=== PATIENT | female | born 1965 | race Two or more races ===

== ENCOUNTER 2016-12-02 23:11 | Inpatient (IN) | payer MEDICARE, OTHER ==
[~2016-12-02] VITALS: Ht 162.6 cm; Wt 95.3 kg
[~2016-12-02 23:11] MED LIST: FENO134C PO; GABA-534 PO; LOSA100T15 PO; METF500T4 PO; METO50TA3 PO; PANT40TA4 PO
[2016-12-03] MEDS ORDERED: ACETAMINOPHEN 325 MG TABLET PO PRN
[2016-12-03] MEDS ORDERED: MAG HYDROX/AL HYDROX/SIMETH 30 ML UDC PO PRN
[2016-12-03] MEDS ORDERED: MAGNESIUM HYDROXIDE 30 ML UDC PO PRN
[2016-12-03] MEDS ORDERED: ONDA4TAB11 (00:17)
[2016-12-03] MEDS ORDERED: GABA-536 (00:17)
[2016-12-03] MEDS ORDERED: [UNRECOGNIZED DRUG - CODE] (00:17)
[2016-12-03] MEDS ORDERED: DIVA500T7 PO (00:17)
[2016-12-03] MEDS ORDERED: ESCI10TA PO (00:17)
[2016-12-03] MEDS ORDERED: FURO20TA4 (00:17)
[2016-12-03] MEDS ORDERED: OXYC-162 (00:17)
[2016-12-03] MEDS ORDERED: TOPI-37 PO (00:17)
[2016-12-03] MEDS ORDERED: HYDR-3652 (00:17)
[2016-12-03] MEDS ORDERED: BENZ1TAB7 (00:17)
[2016-12-03] MEDS ORDERED: ARIP300S (00:17)
[2016-12-03] MEDS ORDERED: MODAFINIL (00:17)
[2016-12-03] MEDS ORDERED: NITR12SP7 (00:17)
[2016-12-03] MEDS ORDERED: POTA20TA83 (00:17)
[2016-12-03] MEDS ORDERED: TOPI100T11 PO (00:18)
[2016-12-03 01:57] VITALS: BP 133/81
[2016-12-03 07:32] LABS: BILIRUBIN,TOTAL 0.4 mg/dL (0.2-1.0); CALCIUM, SERUM 9.1 mg/dL (8.5-10.1); TOTAL PROTEIN, SERUM 7.5 g/dL (6.4-8.2)
[2016-12-03] MEDS: clonazePAM 0.5 MG TABLET PO PRN ×4 (07:55→19:50)
[2016-12-03 08:00] VITALS: BP 136/82
[2016-12-03] MEDS: METFORMIN 500 MG TABLET PO SCH ×2 (09:36→17:58)
[2016-12-03] MEDS: DOCUSATE SODIUM 100 MG CAPSULE PO SCH ×2 (09:37→17:58)
[2016-12-03] MEDS: GABAPENTIN 300 MG CAPSULE PO SCH ×2 (09:37→13:30)
[2016-12-03] MEDS: METOPROLOL TARTRATE 50 MG TABLET PO SCH ×2 (09:37→17:58)
[2016-12-03] MEDS: BENZTROPINE MESYLATE (1 MG) 1 MG TABLET PO SCH ×2 (14:58→17:00)
[2016-12-03 16:00] VITALS: BP 139/86
[2016-12-03 20:11] VITALS: BP 140/88
[2016-12-03] MEDS: DIVALPROEX SODIUM 500 MG TABLET.DR PO SCH (21:55)
[2016-12-03] MEDS: TOPIRAMATE 100 MG TABLET PO SCH (21:55)
[2016-12-03] MEDS: GABAPENTIN 400 MG CAPSULE PO SCH (21:56)
[2016-12-03] MEDS ORDERED: DIVALPROEX SODIUM 500 MG TABLET.DR PO SCH (22:00)
[2016-12-03] MEDS: TEMAZEPAM 7.5 MG CAPSULE PO PRN (23:12)
[2016-12-04 08:00] VITALS: BP 125/82
[2016-12-04 08:23] VITALS: BP 125/82
[2016-12-04] MEDS: METOPROLOL TARTRATE 50 MG TABLET PO SCH ×2 (09:00→17:00)
[2016-12-04] MEDS: METFORMIN 500 MG TABLET PO SCH ×2 (09:00→17:00)
[2016-12-04] MEDS: ESCITALOPRAM OXALATE (10 MG) 10 MG TABLET PO SCH (09:00)
[2016-12-04] MEDS: DOCUSATE SODIUM 100 MG CAPSULE PO SCH ×2 (09:00→17:00)
[2016-12-04] MEDS: BENZTROPINE MESYLATE (1 MG) 1 MG TABLET PO SCH ×2 (09:00→17:00)
[2016-12-04] MEDS: clonazePAM 0.5 MG TABLET PO PRN (13:07)
[2016-12-04 16:11] VITALS: BP 128/77
[2016-12-04] MEDS ORDERED: LORAZEPAM INJ 2 MG/ML VIAL IV ONE (17:00)
[2016-12-04] MEDS ORDERED: OLANZAPINE 10 MG VIAL IM ONE (17:00)
[2016-12-04 20:08] VITALS: BP 113/62
[2016-12-04] MEDS: DIVALPROEX SODIUM 500 MG TABLET.DR PO SCH ×2 (21:10→22:00)
[2016-12-04] MEDS: TOPIRAMATE 100 MG TABLET PO SCH ×2 (21:11→22:00)
[2016-12-04] MEDS: GABAPENTIN 400 MG CAPSULE PO SCH ×2 (21:11→22:00)
[2016-12-05 08:00] VITALS: BP 109/75
[2016-12-05] MEDS: METFORMIN 500 MG TABLET PO SCH ×2 (08:54→16:37)
[2016-12-05] MEDS: OLANZAPINE 5 MG/TAB.RAPDIS PO SCH ×3 (08:54→16:36)
[2016-12-05] MEDS: BENZTROPINE MESYLATE (1 MG) 1 MG TABLET PO SCH ×2 (08:54→16:37)
[2016-12-05] MEDS: DOCUSATE SODIUM 100 MG CAPSULE PO SCH ×2 (08:54→16:36)
[2016-12-05] MEDS: ESCITALOPRAM OXALATE (10 MG) 10 MG TABLET PO SCH (08:55)
[2016-12-05] MEDS: METOPROLOL TARTRATE 50 MG TABLET PO SCH ×2 (08:55→16:37)
[2016-12-05 16:00] VITALS: BP 116/79
[2016-12-05 20:00] VITALS: BP 115/67
[2016-12-05] MEDS: GABAPENTIN 400 MG CAPSULE PO SCH (22:14)
[2016-12-05] MEDS: DIVALPROEX SODIUM 500 MG TABLET.DR PO SCH (22:14)
[2016-12-05] MEDS: TOPIRAMATE 100 MG TABLET PO SCH (22:14)
[2016-12-05] MEDS: HYDROCODONE/APAP 5/325MG 1 EACH TABLET PO PRN (22:21)
[2016-12-05] MEDS: TEMAZEPAM 7.5 MG CAPSULE PO PRN (23:09)
[2016-12-06] MEDS: HYDROCODONE/APAP 5/325MG 1 EACH TABLET PO PRN (05:18)
[2016-12-06 08:00] VITALS: BP 123/76
[2016-12-06] MEDS: BENZTROPINE MESYLATE (1 MG) 1 MG TABLET PO SCH ×2 (09:10→17:07)
[2016-12-06] MEDS: OLANZAPINE 5 MG/TAB.RAPDIS PO SCH ×3 (09:10→17:07)
[2016-12-06] MEDS: METOPROLOL TARTRATE 50 MG TABLET PO SCH ×2 (09:10→17:08)
[2016-12-06] MEDS: METFORMIN 500 MG TABLET PO SCH ×2 (09:10→17:07)
[2016-12-06] MEDS: DOCUSATE SODIUM 100 MG CAPSULE PO SCH ×2 (09:10→17:07)
[2016-12-06] MEDS: ESCITALOPRAM OXALATE (10 MG) 10 MG TABLET PO SCH (09:10)
[2016-12-06] MEDS: clonazePAM 0.5 MG TABLET PO PRN (12:59)
[2016-12-06 20:00] VITALS: BP 116/79
[2016-12-06] MEDS: GABAPENTIN 400 MG CAPSULE PO SCH (21:05)
[2016-12-06] MEDS: TOPIRAMATE 100 MG TABLET PO SCH (21:05)
[2016-12-06] MEDS: DIVALPROEX SODIUM 500 MG TABLET.DR PO SCH (21:05)
[2016-12-06] MEDS: TEMAZEPAM 7.5 MG CAPSULE PO PRN (22:04)
[2016-12-07] MEDS: ESCITALOPRAM OXALATE (10 MG) 10 MG TABLET PO SCH (08:13)
[2016-12-07] MEDS: BENZTROPINE MESYLATE (1 MG) 1 MG TABLET PO SCH ×2 (08:13→16:44)
[2016-12-07] MEDS: METFORMIN 500 MG TABLET PO SCH ×2 (08:13→16:44)
[2016-12-07] MEDS: DOCUSATE SODIUM 100 MG CAPSULE PO SCH ×2 (08:13→16:44)
[2016-12-07] MEDS: OLANZAPINE 5 MG/TAB.RAPDIS PO SCH ×3 (08:13→16:44)
[2016-12-07] MEDS: METOPROLOL TARTRATE 50 MG TABLET PO SCH ×2 (08:13→16:44)
[2016-12-07 09:00] VITALS: BP 131/77
[2016-12-07] MEDS: clonazePAM 0.5 MG TABLET PO PRN (09:56)
[2016-12-07] MEDS ORDERED: diphenhydrAMINE HCL 50 MG/ML VIAL IM ONE (14:00)
[2016-12-07] MEDS ORDERED: OLANZAPINE 10 MG VIAL IM ONE (14:00)
[2016-12-07 15:49] VITALS: BP 125/77
[2016-12-07 21:00] VITALS: BP 125/79
[2016-12-07] MEDS: TOPIRAMATE 100 MG TABLET PO SCH (21:19)
[2016-12-07] MEDS: DIVALPROEX SODIUM 500 MG TABLET.DR PO SCH (21:20)
[2016-12-07] MEDS: GABAPENTIN 400 MG CAPSULE PO SCH (21:20)
[2016-12-07] MEDS: TEMAZEPAM 7.5 MG CAPSULE PO PRN (23:07)
[2016-12-08 08:00] VITALS: BP 125/89
[2016-12-08] MEDS: METOPROLOL TARTRATE 50 MG TABLET PO SCH ×2 (09:00→17:45)
[2016-12-08] MEDS: BENZTROPINE MESYLATE (1 MG) 1 MG TABLET PO SCH ×2 (09:00→17:43)
[2016-12-08] MEDS: OLANZAPINE 5 MG/TAB.RAPDIS PO SCH ×2 (09:00→13:00)
[2016-12-08] MEDS: ESCITALOPRAM OXALATE (10 MG) 10 MG TABLET PO SCH (09:00)
[2016-12-08] MEDS: METFORMIN 500 MG TABLET PO SCH ×2 (09:00→17:43)
[2016-12-08] MEDS: DOCUSATE SODIUM 100 MG CAPSULE PO SCH ×2 (09:00→17:42)
[2016-12-08] MEDS: clonazePAM 0.5 MG TABLET PO PRN (10:17)
[2016-12-08 16:26] VITALS: BP 139/87
[2016-12-08] MEDS: ZIPRASIDONE 20 MG CAPSULE PO SCH (17:00)
[2016-12-08 20:01] VITALS: BP 127/90
[2016-12-08] MEDS: GABAPENTIN 400 MG CAPSULE PO SCH (21:15)
[2016-12-08] MEDS: TEMAZEPAM 7.5 MG CAPSULE PO PRN (21:16)
[2016-12-08] MEDS: DIVALPROEX SODIUM 500 MG TABLET.DR PO SCH (21:16)
[2016-12-08] MEDS: TOPIRAMATE 100 MG TABLET PO SCH (21:17)
[2016-12-09 08:00] VITALS: BP 148/95
[2016-12-09] MEDS: DOCUSATE SODIUM 100 MG CAPSULE PO SCH ×2 (09:11→17:00)
[2016-12-09] MEDS: ESCITALOPRAM OXALATE (10 MG) 10 MG TABLET PO SCH (09:11)
[2016-12-09] MEDS: clonazePAM 0.5 MG TABLET PO PRN (09:11)
[2016-12-09] MEDS: ZIPRASIDONE 20 MG CAPSULE PO SCH ×2 (09:11→17:00)
[2016-12-09] MEDS: METOPROLOL TARTRATE 50 MG TABLET PO SCH ×2 (09:12→17:00)
[2016-12-09] MEDS: METFORMIN 500 MG TABLET PO SCH ×2 (09:12→17:00)
[2016-12-09] MEDS: BENZTROPINE MESYLATE (1 MG) 1 MG TABLET PO SCH ×2 (09:12→17:00)
[2016-12-09 16:00] VITALS: BP 138/88
[2016-12-09 20:32] VITALS: BP 131/80
[2016-12-09] MEDS: TOPIRAMATE 100 MG TABLET PO SCH (21:12)
[2016-12-09] MEDS: GABAPENTIN 400 MG CAPSULE PO SCH (21:12)
[2016-12-09] MEDS: DIVALPROEX SODIUM 500 MG TABLET.DR PO SCH (21:13)
[2016-12-10 08:00] VITALS: BP 133/76
[2016-12-10] MEDS: ZIPRASIDONE 20 MG CAPSULE PO SCH ×2 (09:08→17:13)
[2016-12-10] MEDS: METOPROLOL TARTRATE 50 MG TABLET PO SCH ×2 (09:09→17:14)
[2016-12-10] MEDS: ESCITALOPRAM OXALATE (10 MG) 10 MG TABLET PO SCH (09:09)
[2016-12-10] MEDS: clonazePAM 0.5 MG TABLET PO PRN ×2 (09:09→21:57)
[2016-12-10] MEDS: BENZTROPINE MESYLATE (1 MG) 1 MG TABLET PO SCH ×2 (09:09→17:13)
[2016-12-10] MEDS: METFORMIN 500 MG TABLET PO SCH ×2 (09:09→17:15)
[2016-12-10] MEDS: DOCUSATE SODIUM 100 MG CAPSULE PO SCH ×2 (09:09→17:14)
[2016-12-10 16:00] VITALS: BP 147/90
[2016-12-10 19:53] VITALS: BP 122/77
[2016-12-10] MEDS: TOPIRAMATE 100 MG TABLET PO SCH (21:29)
[2016-12-10] MEDS: DIVALPROEX SODIUM 500 MG TABLET.DR PO SCH (21:29)
[2016-12-10] MEDS: GABAPENTIN 400 MG CAPSULE PO SCH (21:29)
[2016-12-11 08:00] VITALS: BP 138/78
[2016-12-11] MEDS: ESCITALOPRAM OXALATE (10 MG) 10 MG TABLET PO SCH (09:03)
[2016-12-11] MEDS: METFORMIN 500 MG TABLET PO SCH (09:03)
[2016-12-11] MEDS: DOCUSATE SODIUM 100 MG CAPSULE PO SCH (09:03)
[2016-12-11 09:04] VITALS: BP 138/78
[2016-12-11] MEDS: METOPROLOL TARTRATE 50 MG TABLET PO SCH (09:04)
[2016-12-11] MEDS: ZIPRASIDONE 20 MG CAPSULE PO SCH (09:04)
[2016-12-11] MEDS: BENZTROPINE MESYLATE (1 MG) 1 MG TABLET PO SCH (09:05)
== END 2016-12-11 13:45 | disposition home health service (06) | DRG 885 ==
LOC: GPS 23:11
PROVIDERS: ADMIT Psychiatry & Neurology Psychiatry; ATTEND Internal Medicine
DX: F25.9 Schizoaffective disorder, unspecified (principal); R45.851 Suicidal ideations; E78.5 Hyperlipidemia, unspecified; E66.9 Obesity, unspecified; E11.9 Type 2 diabetes mellitus without complications; I10 Essential (primary) hypertension; I25.10 Atherosclerotic heart disease of native coronary artery without angina pectoris; Z86.74 Personal history of sudden cardiac arrest; Z90.710 Acquired absence of both cervix and uterus; Z95.810 Presence of automatic (implantable) cardiac defibrillator; F32.9 Major depressive disorder, single episode, unspecified; M94.0 Chondrocostal junction syndrome [Tietze]; Z85.42 Personal history of malignant neoplasm of other parts of uterus; Z68.36 Body mass index [BMI] 36.0-36.9, adult
CPT/HCPCS: 36415; 80053-TC; 80061-TC; 80164-TC; 82962-TC; 87081-TC; J1200; J2060; J3490

== ENCOUNTER 2017-11-01 01:04 | Inpatient (IN) | payer MEDICARE, OTHER ==
[~2017-11-01] VITALS: Ht 162.6 cm; Wt 92.1 kg
[2017-11-01 01:00] VITALS: BP 148/77
[~2017-11-01 01:04] MED LIST changes: +ARIP300S; +BENZ1TAB7; +DIVA500T7 PO; +DOCU-264; +ESCI10TA PO; +FURO20TA4; +GABA-536; +HYDR-3652; +METO50TA16 PO; -METO50TA3 PO; +MODAFINIL; +NITR12SP7; +ONDA4TAB11; +OXYC-162; +POTA20TA83; +TOPI100T PO; +TOPI100T38 PO
[2017-11-01] MEDS ORDERED: METF500T4 PO (01:48)
[2017-11-01] MEDS ORDERED: ARIP20TA4 PO (01:48)
[2017-11-01] MEDS ORDERED: DIVA500T2 PO (01:48)
[2017-11-01] MEDS ORDERED: RIVA10TA PO (01:48)
[2017-11-01] MEDS ORDERED: GABA-536 PO (01:48)
[2017-11-01] MEDS ORDERED: DULO30CA2 PO (01:48)
[2017-11-01] MEDS ORDERED: HYDR-552 PO (01:48)
[2017-11-01] MEDS ORDERED: SIMV10TA6 PO (01:48)
[2017-11-01] MEDS ORDERED: METO50TA16 PO (01:48)
[2017-11-01] MEDS ORDERED: TOPI100T PO (01:48)
[2017-11-01] MEDS ORDERED: LOSA100T15 PO (01:48)
[2017-11-01] MEDS ORDERED: QUET200T PO (01:48)
[2017-11-01] MEDS ORDERED: DEXTROSE 50%-WATER 50 ML DISP.SYRIN IV PRN (02:00)
[2017-11-01] MEDS ORDERED: LORAZEPAM 0.5 MG TABLET PO PRN (02:30)
[2017-11-01] MEDS ORDERED: ACETAMINOPHEN 325 MG TABLET PO PRN (02:30)
[2017-11-01] MEDS ORDERED: MAG HYDROX/AL HYDROX/SIMETH 30 ML UDC PO PRN (02:30)
[2017-11-01] MEDS ORDERED: MAGNESIUM HYDROXIDE 30 ML UDC PO PRN (02:30)
[2017-11-01] MEDS ORDERED: ZOLPIDEM TARTRATE 5 MG TABLET PO PRN (02:30)
[2017-11-01 08:00] VITALS: BP 138/75
[2017-11-01] MEDS: BLOOD SUGAR DIAGNOSTIC 1 EACH STRIP IN SCH ×4 (08:39→22:46)
[2017-11-01] MEDS: PANTOPRAZOLE 40 MG TABLET.DR PO SCH (08:59)
[2017-11-01] MEDS: FENOFIBRATE NANOCRYS (145 MG) 145 MG TABLET PO SCH (09:00)
[2017-11-01] MEDS: METOPROLOL TARTRATE 50 MG TABLET PO SCH ×2 (09:00→16:40)
[2017-11-01] MEDS: GABAPENTIN 300 MG CAPSULE PO SCH ×3 (09:00→16:39)
[2017-11-01] MEDS: FUROSEMIDE 20 MG TABLET PO SCH (09:00)
[2017-11-01] MEDS: BENZTROPINE MESYLATE (1 MG) 1 MG TABLET PO SCH ×2 (09:00→16:39)
[2017-11-01] MEDS: METFORMIN 500 MG TABLET PO SCH ×2 (09:00→16:39)
[2017-11-01] MEDS: LOSARTAN POTASSIUM 50 MG TABLET PO SCH (09:01)
[2017-11-01] MEDS: POTASSIUM CHLORIDE 20 MEQ TAB.PRT.SR PO SCH (09:01)
[2017-11-01] MEDS: RIVAROXABAN 10 MG TABLET PO SCH (09:03)
[2017-11-01 16:00] VITALS: BP 129/74
[2017-11-01 20:00] VITALS: BP 110/67
[2017-11-01] MEDS: SIMVASTATIN 10 MG TABLET PO SCH (21:34)
[2017-11-01] MEDS: TOPIRAMATE 100 MG TABLET PO SCH (21:34)
[2017-11-01] MEDS: QUETIAPINE FUMARATE 100 MG TABLET PO SCH (21:35)
[2017-11-02 06:47] LABS: BASOPHILS # (AUTO) 0.1 /CMM (0.0-0.2); BASOPHILS % (AUTO) 1.2 % (0.0-2.0); EOSINOPHILS # (AUTO) 0.3 /CMM (0.0-0.7); EOSINOPHILS % (AUTO) 3.5 % (0.0-6.0); HEMATOCRIT 44 % (33-45); HEMOGLOBIN 14.8 g/dL (11.5-14.8); LYMPHOCYTES # (AUTO) 3.9 /CMM (0.8-4.8); LYMPHOCYTES % (AUTO) 48.9 % (20.0-44.0); MEAN CORPUSCULAR HEMOGLOBIN 31 PG (26.0-33.0); MEAN CORPUSCULAR HGB CONC 33 g/dl (31.0-36.0); MEAN CORPUSCULAR VOLUME 92 fL (82-100); MONOCYTES # (AUTO) 0.5 /CMM (0.1-1.30); MONOCYTES % (AUTO) 6.7 % (2.0-12.0); NEUTROPHILS # (AUTO) 3.2 /CMM (1.8-8.9); NEUTROPHILS % (AUTO) 39.7 % (43.0-81.0); PLATELET COUNT (AUTO) 185 /CMM (150-450); RDW COEFFICIENT OF VARIATION 12.9 (11.5-15.0)
[2017-11-02 06:57] LABS: ALBUMIN 3.7 g/dL (3.4-5.0); BILIRUBIN,TOTAL 0.5 mg/dL (0.2-1.0); CALCIUM, SERUM 9.6 mg/dL (8.5-10.1); POTASSIUM 3.9 mmol/L (3.5-5.1); TOTAL PROTEIN, SERUM 7.3 g/dL (6.4-8.2)
[2017-11-02 07:06] LABS: CHOLESTEROL 201 mg/dL (<200); HDL CHOLESTEROL 30 mg/dL (40-60); LDL 131 mg/dL (0-99); TRIGLYCERIDES 188 mg/dL (30-150)
[2017-11-02] MEDS: BLOOD SUGAR DIAGNOSTIC 1 EACH STRIP IN SCH ×4 (07:30→22:49)
[2017-11-02 08:00] VITALS: BP 115/79
[2017-11-02] MEDS: GABAPENTIN 300 MG CAPSULE PO SCH ×3 (08:48→16:08)
[2017-11-02] MEDS: FUROSEMIDE 20 MG TABLET PO SCH (08:48)
[2017-11-02] MEDS: PANTOPRAZOLE 40 MG TABLET.DR PO SCH (08:48)
[2017-11-02] MEDS: METFORMIN 500 MG TABLET PO SCH ×2 (08:48→16:08)
[2017-11-02] MEDS: FENOFIBRATE NANOCRYS (145 MG) 145 MG TABLET PO SCH (08:50)
[2017-11-02] MEDS: RIVAROXABAN 10 MG TABLET PO SCH (08:51)
[2017-11-02] MEDS: METOPROLOL TARTRATE 50 MG TABLET PO SCH ×2 (08:52→16:09)
[2017-11-02] MEDS: BENZTROPINE MESYLATE (1 MG) 1 MG TABLET PO SCH ×2 (08:52→16:08)
[2017-11-02] MEDS: LOSARTAN POTASSIUM 50 MG TABLET PO SCH (08:52)
[2017-11-02] MEDS: POTASSIUM CHLORIDE 20 MEQ TAB.PRT.SR PO SCH (08:55)
[2017-11-02] MEDS: DULOXETINE HCL 30 MG CAPSULE.DR PO SCH (08:56)
[2017-11-02 15:56] VITALS: BP 116/93
[2017-11-02] MEDS: SIMVASTATIN 10 MG TABLET PO SCH (22:12)
[2017-11-02] MEDS: QUETIAPINE FUMARATE 100 MG TABLET PO SCH (22:12)
[2017-11-02] MEDS: TOPIRAMATE 100 MG TABLET PO SCH (22:12)
[2017-11-03 08:00] VITALS: BP 113/74
[2017-11-03] MEDS: FUROSEMIDE 20 MG TABLET PO SCH (08:17)
[2017-11-03] MEDS: LOSARTAN POTASSIUM 50 MG TABLET PO SCH (08:17)
[2017-11-03] MEDS: DULOXETINE HCL 30 MG CAPSULE.DR PO SCH (08:17)
[2017-11-03] MEDS: BENZTROPINE MESYLATE (1 MG) 1 MG TABLET PO SCH ×2 (08:17→17:16)
[2017-11-03] MEDS: GABAPENTIN 300 MG CAPSULE PO SCH ×3 (08:18→17:15)
[2017-11-03] MEDS: PANTOPRAZOLE 40 MG TABLET.DR PO SCH (08:18)
[2017-11-03] MEDS: FENOFIBRATE NANOCRYS (145 MG) 145 MG TABLET PO SCH (08:19)
[2017-11-03] MEDS: METFORMIN 500 MG TABLET PO SCH ×2 (08:19→17:15)
[2017-11-03] MEDS: POTASSIUM CHLORIDE 20 MEQ TAB.PRT.SR PO SCH (08:19)
[2017-11-03] MEDS: METOPROLOL TARTRATE 50 MG TABLET PO SCH ×2 (08:20→17:15)
[2017-11-03] MEDS: BLOOD SUGAR DIAGNOSTIC 1 EACH STRIP IN SCH ×4 (08:28→21:13)
[2017-11-03] MEDS: RIVAROXABAN 10 MG TABLET PO SCH (08:28)
[2017-11-03 15:54] VITALS: BP 112/66
[2017-11-03 19:55] VITALS: BP 107/73
[2017-11-03] MEDS: QUETIAPINE FUMARATE 100 MG TABLET PO SCH (21:07)
[2017-11-03] MEDS: TOPIRAMATE 100 MG TABLET PO SCH (21:07)
[2017-11-03] MEDS: SIMVASTATIN 10 MG TABLET PO SCH (21:08)
[2017-11-04 08:00] VITALS: BP 148/82
[2017-11-04] MEDS: BENZTROPINE MESYLATE (1 MG) 1 MG TABLET PO SCH ×2 (08:48→16:47)
[2017-11-04] MEDS: GABAPENTIN 300 MG CAPSULE PO SCH ×3 (08:48→16:48)
[2017-11-04] MEDS: LOSARTAN POTASSIUM 50 MG TABLET PO SCH (08:48)
[2017-11-04] MEDS: DULOXETINE HCL 30 MG CAPSULE.DR PO SCH (08:48)
[2017-11-04] MEDS: POTASSIUM CHLORIDE 20 MEQ TAB.PRT.SR PO SCH (08:49)
[2017-11-04] MEDS: METFORMIN 500 MG TABLET PO SCH ×2 (08:49→16:47)
[2017-11-04] MEDS: METOPROLOL TARTRATE 50 MG TABLET PO SCH ×2 (08:49→16:48)
[2017-11-04] MEDS: PANTOPRAZOLE 40 MG TABLET.DR PO SCH (08:49)
[2017-11-04] MEDS: FUROSEMIDE 20 MG TABLET PO SCH (08:49)
[2017-11-04] MEDS: FENOFIBRATE NANOCRYS (145 MG) 145 MG TABLET PO SCH (08:49)
[2017-11-04] MEDS: RIVAROXABAN 10 MG TABLET PO SCH (08:54)
[2017-11-04] MEDS: BLOOD SUGAR DIAGNOSTIC 1 EACH STRIP IN SCH ×4 (09:22→21:48)
[2017-11-04 15:36] VITALS: BP 132/80
[2017-11-04 20:01] VITALS: BP 103/70
[2017-11-04] MEDS: TOPIRAMATE 100 MG TABLET PO SCH (21:44)
[2017-11-04] MEDS: SIMVASTATIN 10 MG TABLET PO SCH (21:44)
[2017-11-04] MEDS: QUETIAPINE FUMARATE 100 MG TABLET PO SCH (21:44)
[2017-11-04] MEDS: INSULIN REGULAR, HUMAN 100 UNIT/ML 3 ML VIAL SQ PRN (21:52)
[2017-11-05] MEDS: BLOOD SUGAR DIAGNOSTIC 1 EACH STRIP IN SCH ×4 (07:30→21:48)
[2017-11-05] MEDS: METFORMIN 500 MG TABLET PO SCH ×2 (08:21→16:06)
[2017-11-05] MEDS: POTASSIUM CHLORIDE 20 MEQ TAB.PRT.SR PO SCH (08:22)
[2017-11-05] MEDS: GABAPENTIN 300 MG CAPSULE PO SCH ×3 (08:22→16:06)
[2017-11-05] MEDS: PANTOPRAZOLE 40 MG TABLET.DR PO SCH (08:22)
[2017-11-05] MEDS: BENZTROPINE MESYLATE (1 MG) 1 MG TABLET PO SCH ×2 (08:23→16:06)
[2017-11-05] MEDS: FENOFIBRATE NANOCRYS (145 MG) 145 MG TABLET PO SCH (08:23)
[2017-11-05] MEDS: DULOXETINE HCL 30 MG CAPSULE.DR PO SCH (08:23)
[2017-11-05] MEDS: RIVAROXABAN 10 MG TABLET PO SCH (08:25)
[2017-11-05] MEDS: LOSARTAN POTASSIUM 50 MG TABLET PO SCH (08:29)
[2017-11-05] MEDS: FUROSEMIDE 20 MG TABLET PO SCH (08:29)
[2017-11-05] MEDS: METOPROLOL TARTRATE 50 MG TABLET PO SCH ×2 (08:29→16:06)
[2017-11-05 09:29] VITALS: BP 110/68
[2017-11-05 16:29] VITALS: BP 124/73
[2017-11-05 19:54] VITALS: BP 111/75
[2017-11-05] MEDS: QUETIAPINE FUMARATE 100 MG TABLET PO SCH (21:47)
[2017-11-05] MEDS: SIMVASTATIN 10 MG TABLET PO SCH (21:47)
[2017-11-05] MEDS: TOPIRAMATE 100 MG TABLET PO SCH (21:47)
[2017-11-06 08:00] VITALS: BP 121/75
[2017-11-06] MEDS: BLOOD SUGAR DIAGNOSTIC 1 EACH STRIP IN SCH ×4 (08:01→23:00)
[2017-11-06] MEDS: DULOXETINE HCL 30 MG CAPSULE.DR PO SCH (08:01)
[2017-11-06] MEDS: FENOFIBRATE NANOCRYS (145 MG) 145 MG TABLET PO SCH (08:01)
[2017-11-06] MEDS: FUROSEMIDE 20 MG TABLET PO SCH (08:01)
[2017-11-06] MEDS: BENZTROPINE MESYLATE (1 MG) 1 MG TABLET PO SCH ×2 (08:01→17:04)
[2017-11-06] MEDS: RIVAROXABAN 10 MG TABLET PO SCH (08:03)
[2017-11-06] MEDS: METOPROLOL TARTRATE 50 MG TABLET PO SCH ×2 (08:04→17:00)
[2017-11-06] MEDS: GABAPENTIN 300 MG CAPSULE PO SCH ×3 (08:04→17:04)
[2017-11-06] MEDS: PANTOPRAZOLE 40 MG TABLET.DR PO SCH (08:04)
[2017-11-06] MEDS: LOSARTAN POTASSIUM 50 MG TABLET PO SCH (08:05)
[2017-11-06] MEDS: METFORMIN 500 MG TABLET PO SCH ×2 (08:05→17:22)
[2017-11-06] MEDS: POTASSIUM CHLORIDE 20 MEQ TAB.PRT.SR PO SCH (08:05)
[2017-11-06 15:35] VITALS: BP 92/55
[2017-11-06] MEDS ORDERED: QUETIAPINE FUMARATE 25 MG TABLET PO SCH (17:00)
[2017-11-06 20:00] VITALS: BP 105/66
[2017-11-06] MEDS ORDERED: QUETIAPINE FUMARATE 100 MG TABLET PO SCH (22:00)
[2017-11-06] MEDS: SIMVASTATIN 10 MG TABLET PO SCH (22:36)
[2017-11-06] MEDS: TOPIRAMATE 100 MG TABLET PO SCH (22:36)
[2017-11-07] MEDS: BLOOD SUGAR DIAGNOSTIC 1 EACH STRIP IN SCH ×4 (07:30→21:22)
[2017-11-07] MEDS: PANTOPRAZOLE 40 MG TABLET.DR PO SCH (07:30)
[2017-11-07 08:00] VITALS: BP 100/67
[2017-11-07] MEDS: LOSARTAN POTASSIUM 50 MG TABLET PO SCH (09:00)
[2017-11-07] MEDS: METOPROLOL TARTRATE 50 MG TABLET PO SCH ×2 (09:00→17:47)
[2017-11-07] MEDS: QUETIAPINE FUMARATE 100 MG TABLET PO SCH (09:30)
[2017-11-07] MEDS: BENZTROPINE MESYLATE (1 MG) 1 MG TABLET PO SCH ×2 (09:33→17:47)
[2017-11-07] MEDS: GABAPENTIN 300 MG CAPSULE PO SCH ×3 (09:34→17:47)
[2017-11-07] MEDS: FUROSEMIDE 20 MG TABLET PO SCH (09:34)
[2017-11-07] MEDS: POTASSIUM CHLORIDE 20 MEQ TAB.PRT.SR PO SCH (09:34)
[2017-11-07] MEDS: METFORMIN 500 MG TABLET PO SCH ×2 (09:35→17:46)
[2017-11-07] MEDS: FENOFIBRATE NANOCRYS (145 MG) 145 MG TABLET PO SCH (09:35)
[2017-11-07] MEDS: DULOXETINE HCL 30 MG CAPSULE.DR PO SCH (09:35)
[2017-11-07] MEDS: RIVAROXABAN 10 MG TABLET PO SCH (09:36)
[2017-11-07 16:48] VITALS: BP 113/79
[2017-11-07 17:40] LABS: APPEARANCE,URINE CLEAR (CLEAR); BILIRUBIN,URINE NEGATIVE (NEGATIVE); BLOOD, URINE NEGATIVE Ery/uL (NEGATIVE); COLOR,URINE YELLOW (YELLOW); KETONES,URINE NEGATIVE (NEGATIVE); LEUKOCYTE ESTERASE ,URINE TRACE (NEGATIVE); NITRITE, URINE NEGATIVE (NEGATIVE); PH,URINE 5.5 (5.0-8.0); PROTEIN,URINE NEGATIVE (NEGATIVE); UGLUCOSE NEGATIVE (NEGATIVE); UROBILINOGEN,URINE 0.2 EU/dL (0.2)
[2017-11-07 17:55] LABS: BACTERIA,URINE Few /HPF (None Seen); RBC,URINE 0-2 /HPF (0-2); SQUAMOUS EPITHELIAL CELL,UR Moderate /HPF (None Seen); WBC,URINE 0-2 /HPF (0-3)
[2017-11-07] MEDS: INSULIN REGULAR, HUMAN 100 UNIT/ML 3 ML VIAL SQ PRN ×2 (18:01→18:13)
[2017-11-07 20:00] VITALS: BP 102/64
[2017-11-07] MEDS: TOPIRAMATE 100 MG TABLET PO SCH (21:22)
[2017-11-07] MEDS: SIMVASTATIN 10 MG TABLET PO SCH (21:22)
[2017-11-07] MEDS ORDERED: QUETIAPINE FUMARATE 100 MG TABLET PO SCH ×2 (22:00)
[2017-11-08] MEDS: BLOOD SUGAR DIAGNOSTIC 1 EACH STRIP IN SCH ×2 (07:30→12:00)
[2017-11-08 08:00] VITALS: BP 112/70
[2017-11-08] MEDS: BENZTROPINE MESYLATE (1 MG) 1 MG TABLET PO SCH (08:58)
[2017-11-08] MEDS: QUETIAPINE FUMARATE 100 MG TABLET PO SCH (08:58)
[2017-11-08] MEDS: FENOFIBRATE NANOCRYS (145 MG) 145 MG TABLET PO SCH (08:58)
[2017-11-08] MEDS: FUROSEMIDE 20 MG TABLET PO SCH (08:58)
[2017-11-08 08:59] VITALS: BP 112/70
[2017-11-08] MEDS: METOPROLOL TARTRATE 50 MG TABLET PO SCH (08:59)
[2017-11-08] MEDS: GABAPENTIN 300 MG CAPSULE PO SCH ×2 (08:59→12:41)
[2017-11-08] MEDS: DULOXETINE HCL 30 MG CAPSULE.DR PO SCH (08:59)
[2017-11-08] MEDS: PANTOPRAZOLE 40 MG TABLET.DR PO SCH (08:59)
[2017-11-08] MEDS: LOSARTAN POTASSIUM 50 MG TABLET PO SCH (08:59)
[2017-11-08] MEDS: POTASSIUM CHLORIDE 20 MEQ TAB.PRT.SR PO SCH (08:59)
[2017-11-08] MEDS: RIVAROXABAN 10 MG TABLET PO SCH (09:01)
[2017-11-08] MEDS: METFORMIN 500 MG TABLET PO SCH (09:10)
== END 2017-11-08 13:15 | disposition home or self-care (01) | DRG 885 ==
LOC: GPS 01:04 → UNDOADMIN 01:04 → GPS 01:08
PROVIDERS: ADMIT Psychiatry & Neurology Psychiatry; ATTEND Psychiatry & Neurology Psychiatry
DX: F25.1 Schizoaffective disorder, depressive type (principal); E11.9 Type 2 diabetes mellitus without complications; R45.851 Suicidal ideations; G89.4 Chronic pain syndrome; I10 Essential (primary) hypertension; I25.10 Atherosclerotic heart disease of native coronary artery without angina pectoris; E66.9 Obesity, unspecified; Z81.8 Family history of other mental and behavioral disorders; Z90.710 Acquired absence of both cervix and uterus
CPT/HCPCS: 36415; 80053-TC; 80061-TC; 81000-TC; 82962-TC; 85025-TC; 87081-TC; J1815